=== PATIENT | female | born 1990 | race Caucasian/White ===

== ENCOUNTER 2020-12-16 15:19 | Outpatient (REF) | payer BC, SELFPAY ==
--- NOTE | 2020-12-16 14:15 | PAPFT_PTH ---
PATIENT: Inna Jesus LOC: [facility] U#:[id number] AGE/SX: 30/F ROOM: RE12/16/[address]: Zuleyka Espinal NP : 1990 BED: DIS: 12/16/2020 SPEC #: [id number] RECD: 12/17/20 12:49 STATUS: DOMENICO REJessy #: [id number] VINEET: 12/16/20 14:[address]: Teddy OSUNA,Zuleyka DEPT: [facility] Cytology RECD BY: Etta Fofana Tissues: 1 - CX/ENDOCX FOR PAP SMEARS Procedures: PAP THIN PREP/[facility] Screening HPV DNA PROBE Comments: [id number] (CHLAMYDIA/GC)
[2020-12-18 14:07] LABS: Chlamydia Result Negative (Negative); GC Result Negative (Negative)
== END 2020-12-16 15:20 | disposition home or self-care (01) ==
LOC: LBN 15:19
PROVIDERS: Visit Provider Nurse Practitioner Women's Health
DX: Z11.3 Encounter for screening for infections with a predominantly sexual mode of transmission (principal); Z12.4 Encounter for screening for malignant neoplasm of cervix; Z87.410 Personal history of cervical dysplasia; Z11.51 Encounter for screening for human papillomavirus (HPV); R87.810 Cervical high risk human papillomavirus (HPV) DNA test positive
CPT/HCPCS: 87491; 87591; 88142; 87624

== ENCOUNTER 2021-01-24 14:08 | Outpatient (REF) | payer BC, SELFPAY ==
--- NOTE | 2021-01-24 14:00 | ENDO_PTH ---
PATIENT: Inna Jesus LOC: [facility] U#:[id number] AGE/SX: 30/F ROOM: RE01/24/[address]: Gisele Garcia DO : 1990 BED: DIS: 01/24/2021 SPEC #: [id number] RECD: 01/24/21 15:58 STATUS: DOMENICO REJessy #: [id number] VINEET: 01/24/21 14:[address]: Gisele Garcia DEPT: Surgical Specimen RECD BY: Etta Fofana Tissues: 1 - ENDOCERVICAL BX/CURRETTE 2 - CERVICAL BIOPSY Procedures: GROSS AND MICRO LEVEL 4 Comments: [id number]
== END 2021-01-24 14:09 | disposition home or self-care (01) ==
LOC: LBN 14:08
PROVIDERS: Visit Provider Obstetrics & Gynecology
DX: R87.810 Cervical high risk human papillomavirus (HPV) DNA test positive (principal); Z87.42 Personal history of other diseases of the female genital tract; N88.8 Other specified noninflammatory disorders of cervix uteri
CPT/HCPCS: 88305